=== PATIENT | female | born 1960 | race Two or more races ===

== ENCOUNTER 2017-06-29 03:11 | Emergency (ER) | payer OTHER ==
[~2017-06-29] VITALS: Ht 160 cm; Wt 50.4 kg
[~2017-06-29 03:11] MED LIST: ALBU10PO INH
[2017-06-29] MEDS ORDERED: OMEP20TA62 PO (04:40)
[2017-06-29] MEDS ORDERED: PRED5TAB PO (04:40)
[2017-06-29] MEDS ORDERED: ASPIRIN 81 MG TABLET CHEW PO ONE (05:00)
[2017-06-29] MEDS ORDERED: ASPIRIN 81 MG TABLET CHEW ONE (05:04)
[2017-06-29 05:15] LABS: HEMATOCRIT 43.6 % (34.6-47.8); HEMOGLOBIN 14.5 g/dL (11.7-16.4)
[2017-06-29 05:29] LABS: BLOOD UREA NITROGEN 11 mg/dL (7-18)
[2017-06-29 05:36] LABS: IS PT STATUS REG ER OR PRE ER? YES
[2017-06-29] MEDS ORDERED: BENZONATATE 100 MG CAPSULE PO ONE (06:13)
[2017-06-29 06:40] VITALS: BP 122/67
== END 2017-06-29 06:53 | disposition home or self-care (01) ==
LOC: ED 05:18
DX: R07.89 Other chest pain (principal); J01.00 Acute maxillary sinusitis, unspecified
CPT/HCPCS: 36415; 71020; 80048; 82040; 84484; 85025; 93005; 99285

== ENCOUNTER 2017-07-06 02:16 | Emergency (ER) | payer OTHER ==
[~2017-07-06] VITALS: Ht 160 cm; Wt 51.0 kg
[~2017-07-06 02:16] MED LIST changes: +OMEP20TA62 PO; +PRED5TAB PO
[2017-07-06] MEDS ORDERED: ALBUTEROL/IPRATROPIUM 2.5MG/0.5MG, 3 ML ONE (02:39)
[2017-07-06] MEDS ORDERED: methylPREDNISolone SOD SUCC 125 MG/2 ML ONE (02:46)
[2017-07-06 02:47] LABS: HEMATOCRIT 42.9 % (34.6-47.8); HEMOGLOBIN 14.4 g/dL (11.7-16.4); WHITE BLOOD COUNT 6.5 x10^3/uL (3.4-10)
[2017-07-06 03:00] LABS: BLOOD UREA NITROGEN 15 mg/dL (7-18)
[2017-07-06] MEDS ORDERED: SODIUM CHLORIDE 0.9% 1,000ML IVBOLUS ONE (03:00)
[2017-07-06] MEDS ORDERED: methylPREDNISolone SOD SUCC 125 MG/2 ML IVP ONE (03:00)
[2017-07-06] MEDS ORDERED: ALBUTEROL/IPRATROPIUM 2.5MG/0.5MG, 3 ML NPPB ONE (03:00)
[2017-07-06 03:05] LABS: IS PT STATUS REG ER OR PRE ER? YES
[2017-07-06 04:23] VITALS: BP 107/72
== END 2017-07-06 04:28 | disposition home or self-care (01) ==
LOC: ED 04:25
DX: J20.9 Acute bronchitis, unspecified (principal); Z87.891 Personal history of nicotine dependence
CPT/HCPCS: 36415; 71020; 80048; 82040; 84484; 85025; 94640; 96374; 99285; J2930; J7030; J7620

== ENCOUNTER → 2017-07-15 | Outpatient (CLI) | payer OTHER ==
[~2017-07-15] MED LIST changes: +OMNIPAQUE 350 MG/ML, 100ML BOTTLE ONE
== END | disposition home or self-care (01) ==
LOC: CFH 14:24
PROVIDERS: ATTEND Nurse Practitioner Primary Care
DX: R05 Cough (principal); R06.00 Dyspnea, unspecified
CPT/HCPCS: 71260; Q9967

== ENCOUNTER 2017-10-11 05:25 | Day surgery (SDC) | payer OTHER ==
[~2017-10-11] VITALS: Ht 160 cm; Wt 49.4 kg
[~2017-10-11 05:25] MED LIST changes: -OMNIPAQUE 350 MG/ML, 100ML BOTTLE ONE
[2017-10-11 06:09] VITALS: BP 142/93
[2017-10-11] MEDS ORDERED: LACTATED RINGERS 1,000 ML IV SCH (06:10)
[2017-10-11] MEDS ORDERED: MULTIVITAMIN (06:34)
[2017-10-11] MEDS ORDERED: ARNUITY (06:34)
[2017-10-11] MEDS ORDERED: MAGNESIUM (06:34)
[2017-10-11] MEDS ORDERED: VIT C (06:34)
[2017-10-11] MEDS ORDERED: OXYMETAZOLINE NASAL SPRAY 0.05%, 15ML ONE (07:00)
[2017-10-11] MEDS ORDERED: BACITRACIN OINT 500U/GM, 15 GM ONE (07:00)
[2017-10-11] MEDS ORDERED: LIDOCAINE/PF 1%, 30ML ONE (07:00)
[2017-10-11] MEDS ORDERED: EPINEPHRINE 1 MG/ML, 1ML ONE (07:00)
[2017-10-11] MEDS ORDERED: BACITRACIN 50,000 UNIT ONE (07:00)
[2017-10-11] MEDS ORDERED: EPINEPHRINE TOPICAL SOLN 1 MG/ML, 30ML ONE (07:00)
[2017-10-11] MEDS ORDERED: FLUORESCEIN OPHTHALMIC 1 MG STRIP ONE (07:02)
[2017-10-11] MEDS ORDERED: MIDAZOLAM 1 MG/ML, 2ML ONE (07:16)
[2017-10-11] MEDS ORDERED: FENTANYL PF 250 MCG/5ML ONE (07:16)
[2017-10-11] MEDS ORDERED: HYDROCORTISONE 100 MG INJ. ONE (07:19)
[2017-10-11] MEDS ORDERED: SUCCINYLCHOLINE 20 MG/ML, 10ML ONE (07:21)
[2017-10-11] MEDS ORDERED: DEXAMETHASONE 4 MG/ML, 1ML ONE (07:21)
[2017-10-11] MEDS ORDERED: ROCURONIUM 10 MG/ML,10ML ONE (07:21)
[2017-10-11] MEDS ORDERED: ONDANSETRON 2MG/ML, 2ML ONE (07:21)
[2017-10-11] MEDS ORDERED: NEOSTIGMINE 1 MG/ML, 10ML ONE (07:21)
[2017-10-11] MEDS ORDERED: PROPOFOL 10 MG/ML, 20ML ONE (07:21)
[2017-10-11] MEDS ORDERED: CEFAZOLIN 1,000 MG ONE (07:21)
[2017-10-11] MEDS ORDERED: GLYCOPYRROLATE 0.2MG/1ML, 5ML ONE (07:21)
[2017-10-11] MEDS ORDERED: PROMETHAZINE 25 MG/ML, 1ML IV PRN (07:30)
[2017-10-11] MEDS ORDERED: FENTANYL PF 100 MCG/2ML IV PRN (07:30)
[2017-10-11] MEDS ORDERED: OXYcodone 5 MG/5 ML ORAL.SOL UDC PO PRN (07:30)
[2017-10-11] MEDS ORDERED: HYDROmorphone 1 MG/ML, 1ML IV PRN (07:30)
[2017-10-11] MEDS ORDERED: ONDANSETRON 2MG/ML, 2ML IVPush PRN (07:30)
[2017-10-11] MEDS ORDERED: HYDROcodone/APAP 7.5-325MG/15ML UDC PO PRN (07:30)
[2017-10-11] MEDS ORDERED: HYDROmorphone 2 MG/ML, 1ML ONE (08:40)
[2017-10-11] MEDS ORDERED: ALBUTEROL SULFATE 2.5 MG/3 ML ONE (10:12)
[2017-10-11] MEDS ORDERED: ACETAMINOPHEN 650 MG/20.3 ML UDC ONE (11:07)
[2017-10-11] MEDS ORDERED: ACETAMINOPHEN 650 MG/20.3 ML UDC PO PRN (11:30)
== END 2017-10-11 12:35 | disposition home or self-care (01) ==
LOC: OUT 05:25
PROVIDERS: ATTEND Otolaryngology
DX: J34.2 Deviated nasal septum (principal); J32.8 Other chronic sinusitis; J33.8 Other polyp of sinus; K21.9 Gastro-esophageal reflux disease without esophagitis; J45.909 Unspecified asthma, uncomplicated; Z82.49 Family history of ischemic heart disease and other diseases of the circulatory system; Z72.89 Other problems related to lifestyle
CPT/HCPCS: 30520; 31240; 31255; 31256; 31287; 31288; 88304; 88311; 94640; J0171; J0330; J0690; J1100; J1170; J1720; J2250; J2405; J2704; J2710; J3010; J3490

== ENCOUNTER 2018-05-02 07:18 | Day surgery (SDC) | payer OTHER ==
[~2018-05-02] VITALS: Ht 160 cm; Wt 51.7 kg
[~2018-05-02 07:18] MED LIST changes: +ARNUITY; +BACITRACIN OINT 500U/GM, 15 GM ONE; +EPINEPHRINE 1 MG/ML, 1ML ONE; +FLUORESCEIN SODIUM 500 MG/5 ML ONE; +LIDOCAINE/PF 1%, 30ML ONE; +MAGNESIUM; +MULTIVITAMIN; +OXYMETAZOLINE NASAL SPRAY 0.05%, 15ML ONE; +VIT C
[2018-05-02] MEDS ORDERED: EPINEPHRINE TOPICAL SOLN 1 MG/ML, 30ML ONE (07:30)
[2018-05-02] MEDS ORDERED: LIDOCAINE-MPF 1%, 2ML INFIL ONE (08:00)
[2018-05-02] MEDS ORDERED: LACTATED RINGERS 1,000 ML IV SCH (08:00)
[2018-05-02] MEDS ORDERED: FISH OIL PO (08:05)
[2018-05-02 08:12] VITALS: BP 139/101
[2018-05-02] MEDS ORDERED: MIDAZOLAM 1 MG/ML, 2ML ONE (08:23)
[2018-05-02] MEDS ORDERED: FENTANYL PF 250 MCG/5ML ONE (08:23)
[2018-05-02] MEDS ORDERED: NALOXONE 0.4 MG/ML, 1ML ONE (09:01)
[2018-05-02] MEDS ORDERED: DEXAMETHASONE 4 MG/ML, 1ML ONE (09:46)
[2018-05-02] MEDS ORDERED: SUCCINYLCHOLINE 20 MG/ML, 10ML ONE (09:46)
[2018-05-02] MEDS ORDERED: ROCURONIUM 10 MG/ML,10ML ONE (09:46)
[2018-05-02] MEDS ORDERED: CEFAZOLIN 1,000 MG ONE (09:46)
[2018-05-02] MEDS ORDERED: PROPOFOL 10 MG/ML, 20ML ONE (09:46)
[2018-05-02] MEDS ORDERED: LIDOCAINE 4%, 4 ML SYR/CANN TP ONE (09:46)
[2018-05-02] MEDS ORDERED: LIDOCAINE PF 2%, 5ML ONE (09:46)
[2018-05-02] MEDS ORDERED: ONDANSETRON 2MG/ML, 2ML ONE (09:46)
[2018-05-02] MEDS ORDERED: ACETAMINOPHEN 325 MG TABLET PO PRN (10:00)
[2018-05-02] MEDS ORDERED: MORPHINE SULFATE 4 MG/ML, 1ML IVPush PRN (10:00)
[2018-05-02] MEDS ORDERED: FENTANYL PF 100 MCG/2ML IV PRN (10:00)
[2018-05-02] MEDS ORDERED: HYDROcodone/APAP 7.5-325MG/15ML UDC PO PRN (10:00)
[2018-05-02] MEDS ORDERED: PROMETHAZINE 25 MG/ML, 1ML IV PRN (10:00)
[2018-05-02] MEDS ORDERED: OXYcodone 5 MG/5 ML ORAL.SOL UDC PO PRN (10:00)
[2018-05-02] MEDS ORDERED: ONDANSETRON ODT 8 MG PO PRN (10:00)
[2018-05-02] MEDS ORDERED: ACETAMINOPHEN 650 MG/20.3 ML UDC ONE (11:55)
== END 2018-05-02 13:15 ==
LOC: OUT 07:18
PROVIDERS: ATTEND Otolaryngology
DX: J32.2 Chronic ethmoidal sinusitis (principal); J32.1 Chronic frontal sinusitis; J32.0 Chronic maxillary sinusitis; J33.9 Nasal polyp, unspecified; J45.909 Unspecified asthma, uncomplicated; K21.9 Gastro-esophageal reflux disease without esophagitis; Z72.89 Other problems related to lifestyle
CPT/HCPCS: 31253; 31256; 31257; 61782; 88304; J0171; J0330; J0690; J1100; J2250; J2310; J2405; J2704; J3010; J3490; J7120